=== PATIENT | female | born 1990 | race Caucasian/White ===

== ENCOUNTER 2017-06-06 13:47 | Emergency (ER) | payer MEDICAID ==
[2017-06-06 16:46] LABS: BASOPHIL % 0.3 % (0-2); PLATELET COUNT 203 x10^3mcL (130-400); RED CELL DISTRIBUTION WIDTH 14.1 % (11.5-14.5)
[2017-06-06 17:01] LABS: CALCIUM 8.7 mg/dL (8.5-10.1); CARBON DIOXIDE 30.3 mmol/L (21-32); CHLORIDE SERUM 104 mmol/L (98-107); CREATININE SERUM 0.8 mg/dL (0.6-1.0); GFR1 > 60 mL/min; GLUCOSE SERUM 95 mg/dL (74-106); SODIUM SERUM 141 mmol/L (136-145)
[2017-06-06 17:11] LABS: ALBUMIN 4.1 g/dL (3.4-5.0); ALKALINE PHOSPHATASE 73 U/L (46-116); ALT/SGPT 21 U/L (14-59); AST/SGOT 18 U/L (15-37); BILIRUBIN TOTAL 0.4 mg/dL (0.20-1.00); TOTAL PROTEIN, SERUM 7.9 g/dL (6.4-8.2)
[2017-06-06 18:19] VITALS: BP 102/68
== END 2017-06-06 18:19 | disposition home or self-care (01) ==
LOC: ED 13:47
PROVIDERS: Specialist
DX: R07.89 Other chest pain (principal)
CPT/HCPCS: 36415; 83880; J1885; J3010; Q0162

== ENCOUNTER 2017-07-28 09:23 | Emergency (ER) | payer MEDICAID ==
[~2017-07-28] VITALS: Ht 167.6 cm; Wt 66.7 kg
[2017-07-28 09:28] VITALS: Ht 167.6 cm; Wt 66.7 kg
[2017-07-28 11:52] LABS: UA SPECIFIC GRAVITY <=1.005 (1.005-1.035); microscopic required? YES; urine erythrocyte NEGATIVE (NEGATIVE)
[2017-07-28 12:06] LABS: T3 TOTAL 0.9 ng/mL
[2017-07-28 12:09] VITALS: BP 97/49
[2017-07-28 12:51] LABS: CARBON DIOXIDE 23.9 mmol/L (21-32); CHLORIDE SERUM 108 mmol/L (98-107); CREATININE SERUM 0.6 mg/dL (0.6-1.0); GFR1 > 60 mL/min; GLUCOSE SERUM 96 mg/dL (74-106); POTASSIUM SERUM 4.6 mmol/L (3.5-5.1); SODIUM SERUM 143 mmol/L (136-145)
[2017-07-28 13:02] LABS: ALBUMIN 3.6 g/dL (3.4-5.0); ALKALINE PHOSPHATASE 58 U/L (46-116); ALT/SGPT 16 U/L (14-59); AST/SGOT 15 U/L (15-37); BILIRUBIN TOTAL 0.2 mg/dL (0.20-1.00); LIPASE 94 IU/L (73-393); TOTAL PROTEIN, SERUM 6.5 g/dL (6.4-8.2); TRIGLYCERIDES 86 mg/dL (<150)
[2017-07-28 13:05] LABS: CHOLESTEROL 123 mg/dL (<200); CHOLESTEROL/HDL RATIO 3.7; HDL CHOLESTEROL 33 mg/dL (40-60)
[2017-07-28 13:59] LABS: FREE T4 0.89 ng/dL (0.76-1.46); FREE THYROXINE INDEX 1.7 ug/dL (1.4-4.5); T4(THYROXINE) 5.4 ug/dL (4.7-13.3)
== END 2017-07-28 12:09 | disposition home or self-care (01) ==
LOC: ED 09:23
PROVIDERS: Specialist
DX: M94.0 Chondrocostal junction syndrome [Tietze] (principal)
CPT/HCPCS: 83880; 84439; J1885; J2405; J3010; J7030; Q0092